=== PATIENT | female | born 1955 | race African-American/Black ===

== ENCOUNTER → 2016-09-10 | Outpatient (CLI) | payer MEDICAID ==
[2014-05-22 11:49] VITALS: BP 124/88
--- NOTE | 2016-09-10 14:03 | RAD ---
HISTORY: Preoperative evaluation Study: Two view chest Comparison: 04/13/2013 Findings: The lungs are clear without consolidation, effusion or pneumothorax. The cardiac and mediastinal co ntours are within normal limits. The soft tissues are unremarkable. IMPRESSION: 1. No acute cardiopulmonary abnormality. Reported By:
[2016-09-10 14:45] LABS: BILIRUBIN,URINE NEGATIVE (NEGATIVE); BLOOD/HEMOGLOBIN,URINE NEGATIVE (NEGATIVE); GLUCOSE, URINE NEGATIVE (NEGATIVE); KETONES,URINE NEGATIVE (NEGATIVE); LEUKOCYTE ESTERASE ,URINE NEGATIVE (NEGATIVE); NITRITES,URINE NEGATIVE (NEGATIVE); PROTEIN,URINE NEGATIVE (NEGATIVE); UROBILINOGEN,URINE NORMAL (NORMAL)
[2016-09-10 14:54] LABS: APPEARANCE,URINE CLEAR (CLEAR); BACTERIA,URINE NEGATIVE /HPF (NEGATIVE); COLOR,URINE PINK (YELLOW); RBC,URINE NONE SEEN /HPF (NEGATIVE); SQUAMOUS EPITHELIAL CELL,UR RARE /HPF (NEGATIVE)
== END ==
LOC: LAB 12:55
PROVIDERS: ATTEND Specialist
DX: Z01.818 Encounter for other preprocedural examination (principal); Z01.810 Encounter for preprocedural cardiovascular examination; Z01.811 Encounter for preprocedural respiratory examination; Z11.8 Encounter for screening for other infectious and parasitic diseases; M17.32 Unilateral post-traumatic osteoarthritis, left knee
CPT/HCPCS: 36415; 71020; 81001; 85652; 86140; 86850; 86900; 86901; 87641; 93005; 93010

== ENCOUNTER 2016-09-14 07:28 | Inpatient (IN) | payer MEDICAID ==
[2016-09-14] MEDS ORDERED: NS 50 ML IV + SPIKE MINIBAG* 50 ML IV ONE (07:34)
[2016-09-14] MEDS ORDERED: D5 LR 1000 ML 1,000 ML IV ONE (07:34)
[2016-09-14] MEDS ORDERED: ANCEF VIAL 1 GM ONE ×2 (07:35→07:53)
[2016-09-14 08:09] VITALS: BMI 39.8
[2016-09-14] MEDS ORDERED: FENTANYL INJ 250 mcg ONE (08:14)
[2016-09-14] MEDS ORDERED: DILAUDID INJ ONE ×2 (08:14→10:51)
[2016-09-14] MEDS ORDERED: MARCAINE 0.25% WITH EPI IJ ONE (08:48)
[2016-09-14] MEDS ORDERED: PATIENT'S HOME MEDICATION RESPIRATORY (Alprazolam [Xanax 1 Mg] 1 MG) PO PRN (08:57)
[2016-09-14] MEDS ORDERED: [UNRECOGNIZED DRUG - OTHER] PO SCH (09:00)
[2016-09-14] MEDS ORDERED: DEPAKOTE D.R. TAB PO SCH (09:00)
[2016-09-14] MEDS ORDERED: NS IRRIGATION 1000 ML 1,000 ML with BACITRACIN VIAL 50,000 UNT IR ONE ×2 (09:10)
[2016-09-14] MEDS ORDERED: NS IRRIGATION 3000 ML 3,000 ML with BACITRACIN VIAL 50,000 UNT IR ONE ×4 (09:10)
[2016-09-14] MEDS ORDERED: XANAX PO PRN (09:12)
[2016-09-14] MEDS ORDERED: PHENERGAN INJ 25 MG IVP PRN (10:38)
[2016-09-14] MEDS ORDERED: BENADRYL INJ 50 MG VIAL IVP PRN (10:38)
[2016-09-14] MEDS ORDERED: ZOFRAN INJ 4 MG VIAL IVP PRN (10:38)
[2016-09-14] MEDS ORDERED: REGLAN INJ 10 MG VIAL IVP PRN (10:38)
[2016-09-14] MEDS: DILAUDID INJ IVP PRN ×2 (10:40→10:55)
[2016-09-14] MEDS ORDERED: DILAUDID INJ IVP ONE (11:20)
[2016-09-14] MEDS ORDERED: NAROPIN 0.75% ONE (11:21)
[2016-09-14] MEDS: D5 NS 1000 ML 1,000 ML IV SCH (11:55)
[2016-09-14] MEDS: MORPHINE SULFATE PCA 30 MG IV PRN ×2 (12:07→18:40)
[2016-09-14] MEDS ORDERED: DEPAKOTE D.R. TAB PO ONE (12:26)
[2016-09-14] MEDS: ADVAIR DISKUS 250/50 IN SCH ×2 (12:30→20:31)
[2016-09-14] MEDS ORDERED: NS 500 ML IV 500 ML IV ONE (12:44)
[2016-09-14] MEDS ORDERED: DIPRIVAN VIAL ONE (13:14)
[2016-09-14] MEDS ORDERED: XYLOCAINE 2 % (PLAIN) ONE (13:14)
[2016-09-14] MEDS ORDERED: REGLAN INJ 10 MG VIAL ONE (13:14)
[2016-09-14] MEDS ORDERED: ZOFRAN INJ 4 MG VIAL ONE (13:14)
[2016-09-14] MEDS ORDERED: QUELICIN (OR ANECTINE) ONE (13:14)
[2016-09-14] MEDS ORDERED: ROBINUL ONE (13:14)
[2016-09-14] MEDS ORDERED: SUPRANE IN ONE (13:14)
[2016-09-14] MEDS ORDERED: NORMODYNE INJ 100 MG VIAL ONE (13:14)
[2016-09-14] MEDS ORDERED: NORCURON INJ 10 MG VIAL ONE (13:14)
[2016-09-14] MEDS ORDERED: VERSED ONE (13:14)
[2016-09-14] MEDS ORDERED: NEOSTIGMINE INJ ONE (13:14)
[2016-09-14] MEDS: PROTONIX TAB 40 MG PO SCH (13:43)
[2016-09-14] MEDS: ANCEF VIAL 1 GM 2 GM in NS 100 ML IV 100 ML IV SCH ×2 (13:44→21:29)
[2016-09-14] MEDS: REGLAN TAB 10 MG PO SCH ×3 (13:44→21:30)
[2016-09-14] MEDS: SINGULAIR TAB 10 MG PO SCH (13:44)
[2016-09-14] MEDS: ZANTAC PO SCH ×2 (13:44→21:30)
[2016-09-14] MEDS: UNIPHYL TAB 400 MG PO SCH (13:44)
[2016-09-14] MEDS: PERCOCET TAB 5/325 MG PO PRN ×3 (13:45→23:11)
[2016-09-14] MEDS: [UNRECOGNIZED DRUG - OTHER] PO SCH (16:09)
[2016-09-14] MEDS: LYRICA 25 MG PO SCH ×2 (16:10→22:35)
[2016-09-14] MEDS: [UNRECOGNIZED DRUG - OTHER] PO SCH (22:06)
[2016-09-15] MEDS: MORPHINE SULFATE PCA 30 MG IV PRN ×2 (03:30→13:24)
[2016-09-15] MEDS: REGLAN TAB 10 MG PO SCH ×4 (05:42→21:22)
[2016-09-15] MEDS: LYRICA 25 MG PO SCH ×3 (05:42→21:23)
[2016-09-15] MEDS: ANCEF VIAL 1 GM 2 GM in NS 100 ML IV 100 ML IV SCH ×3 (05:42→21:22)
[2016-09-15] MEDS: D5 NS 1000 ML 1,000 ML IV SCH ×2 (05:45→06:52)
[2016-09-15] MEDS ORDERED: LEXAPRO ONE (08:42)
[2016-09-15] MEDS: PERCOCET TAB 5/325 MG PO PRN ×3 (09:03→21:22)
[2016-09-15] MEDS: PROTONIX TAB 40 MG PO SCH (09:03)
[2016-09-15] MEDS: UNIPHYL TAB 400 MG PO SCH (09:04)
[2016-09-15] MEDS: LOVENOX INJ 30 MG SYR SC SCH ×2 (09:04→21:21)
[2016-09-15] MEDS: SINGULAIR TAB 10 MG PO SCH (09:04)
[2016-09-15] MEDS: LEXAPRO PO SCH (09:04)
[2016-09-15] MEDS: ZANTAC PO SCH ×2 (09:04→21:22)
[2016-09-15] MEDS: [UNRECOGNIZED DRUG - OTHER] PO SCH (09:05)
[2016-09-15] MEDS: ADVAIR DISKUS 250/50 IN SCH ×2 (09:11→21:01)
[2016-09-15] MEDS: PROVENTIL NEB TX 0.083% 2.5MG/ 3ML IN PRN ×4 (09:11→21:02)
[2016-09-15 09:22] LABS: BASOPHILS # (AUTO) 0.1 X10^3/uL (0.0-0.1); BASOPHILS % (AUTO) 0.6 % (0.2-1.0); EOSINOPHILS % (AUTO) 0.1 % (0.9-2.9); HEMATOCRIT 39.2 % (36.0-47.0); HEMOGLOBIN 13.1 g/dL (12.0-16.0); LYMPHOCYTES # (AUTO) 2.5 X10^3/uL (1.3-2.9); LYMPHOCYTES % (AUTO) 21.6 % (21.0-51.0); MEAN CORPUSCULAR HEMOGLOBIN 29.4 pg (27.0-34.0); MEAN CORPUSCULAR HGB CONC 33.5 g/dL (33.0-35.0); MEAN CORPUSCULAR VOLUME 87.7 fL (80.0-100.0); MEAN PLATELET VOLUME 8.5 fL (7.4-11.0); MONOCYTES # (AUTO) 1.6 x10^3/uL (0.3-0.8); MONOCYTES % (AUTO) 13.7 % (0.0-13.0); NEUTROPHILS # (AUTO) 7.3 x10^3/uL (2.2-4.8); PLATELET COUNT 176 X10^3/uL (150.0-450.0); RED BLOOD COUNT 4.48 X10^6/uL (3.5-5.4); RED CELL DISTRIBUTION WIDTH 13.1 % (11.6-16.5); WHITE BLOOD COUNT 11.4 X10^3/uL (3.6-10.0)
[2016-09-15 09:26] LABS: BLOOD UREA NITROGEN 6 mg/dL (7-18); CALCIUM 8.2 mg/dL (8.5-10.1); CARBON DIOXIDE 24.6 mmol/L (21-32); CHLORIDE 102 mmol/L (98-107); COR NA(FOR HYPERGLY) 140 mmol/L (136-145); CREATININE 0.85 mg/dL (0.55-1.02); GLUCOSE 132 mg/dL (65-99); SODIUM 139 mmol/L (136-145); eGFR BLACK RACES > 60 (>60); eGFR NON BLACK RACES > 60 (>60)
[2016-09-15] MEDS: CARDIZEM CD 180 MG PO SCH (11:03)
[2016-09-15] MEDS: [UNRECOGNIZED DRUG - OTHER] PO SCH (21:21)
[2016-09-16] MEDS: D5 NS 1000 ML 1,000 ML IV SCH ×2 (01:56→04:17)
[2016-09-16] MEDS: MORPHINE SULFATE PCA 30 MG IV PRN (01:57)
[2016-09-16] MEDS: ANCEF VIAL 1 GM 2 GM in NS 100 ML IV 100 ML IV SCH ×2 (05:28→14:32)
[2016-09-16] MEDS: LYRICA 25 MG PO SCH ×2 (05:28→14:33)
[2016-09-16] MEDS: REGLAN TAB 10 MG PO SCH ×2 (05:30→14:32)
[2016-09-16 05:34] LABS: BASOPHILS # (AUTO) 0.1 X10^3/uL (0.0-0.1); BASOPHILS % (AUTO) 0.4 % (0.2-1.0); HEMATOCRIT 33.2 % (36.0-47.0); HEMOGLOBIN 11.3 g/dL (12.0-16.0); LYMPHOCYTES # (AUTO) 2.1 X10^3/uL (1.3-2.9); LYMPHOCYTES % (AUTO) 16.9 % (21.0-51.0); MEAN CORPUSCULAR HEMOGLOBIN 29.8 pg (27.0-34.0); MEAN CORPUSCULAR HGB CONC 34.1 g/dL (33.0-35.0); MEAN CORPUSCULAR VOLUME 87.4 fL (80.0-100.0); MEAN PLATELET VOLUME 8.8 fL (7.4-11.0); MONOCYTES # (AUTO) 1.7 x10^3/uL (0.3-0.8); MONOCYTES % (AUTO) 13.9 % (0.0-13.0); NEUTROPHILS # (AUTO) 8.4 x10^3/uL (2.2-4.8); NEUTROPHILS % (AUTO) 68.8 % (42.0-75.0); PLATELET COUNT 166 X10^3/uL (150.0-450.0); RED BLOOD COUNT 3.79 X10^6/uL (3.5-5.4); RED CELL DISTRIBUTION WIDTH 12.4 % (11.6-16.5); WHITE BLOOD COUNT 12.3 X10^3/uL (3.6-10.0)
[2016-09-16 05:44] LABS: BLOOD UREA NITROGEN 5 mg/dL (7-18); CARBON DIOXIDE 26.1 mmol/L (21-32); CHLORIDE 102 mmol/L (98-107); COR NA(FOR HYPERGLY) 139 mmol/L (136-145); CREATININE 0.76 mg/dL (0.55-1.02); GLUCOSE 150 mg/dL (65-99); SODIUM 138 mmol/L (136-145); eGFR BLACK RACES > 60 (>60); eGFR NON BLACK RACES > 60 (>60)
[2016-09-16] MEDS ORDERED: LEXAPRO ONE (08:33)
[2016-09-16] MEDS: LOVENOX INJ 30 MG SYR SC SCH (08:42)
[2016-09-16] MEDS: UNIPHYL TAB 400 MG PO SCH (08:45)
[2016-09-16] MEDS: ZANTAC PO SCH (08:45)
[2016-09-16] MEDS: SINGULAIR TAB 10 MG PO SCH (08:46)
[2016-09-16] MEDS: PROTONIX TAB 40 MG PO SCH (08:46)
[2016-09-16] MEDS: LEXAPRO PO SCH (08:46)
[2016-09-16] MEDS: PERCOCET TAB 5/325 MG PO PRN ×2 (08:47→15:29)
[2016-09-16] MEDS: CARDIZEM CD 180 MG PO SCH (08:48)
[2016-09-16] MEDS: PROVENTIL NEB TX 0.083% 2.5MG/ 3ML IN PRN (08:52)
[2016-09-16] MEDS: ADVAIR DISKUS 250/50 IN SCH (08:52)
[2016-09-16] MEDS ORDERED: CARDIZEM CD 180 MG PO SCH (09:01)
[2016-09-16] MEDS ORDERED: LR 1000 ML IV 1,000 ML IV SCH (10:00)
[2016-09-16] MEDS ORDERED: K-DUR TAB 20 MEQ PO SCH (10:00)
[2016-09-16] MEDS ORDERED: CARDIZEM CD 240 MG PO SCH (10:00)
[2016-09-16] MEDS: [UNRECOGNIZED DRUG - OTHER] PO SCH (10:23)
[2016-09-16 16:54] VITALS: BP 144/65
== END 2016-09-16 16:20 | disposition home or self-care (01) | DRG 470 ==
LOC: MED/SURG 07:28
PROVIDERS: ADMIT Specialist; ATTEND Obstetrics & Gynecology Obstetrics
PROC: 0SRD0J9 Replacement of Left Knee Joint with Synthetic Substitute, Cemented, Open Approach (ICD-10-PCS; principal; 2016-09-14 08:30)
DX: M17.12 Unilateral primary osteoarthritis, left knee (principal); I10 Essential (primary) hypertension; E87.6 Hypokalemia; R26.89 Other abnormalities of gait and mobility
CPT/HCPCS: 36415; 80048; 85025; 94640; 94762; 97535; A4216; A4222; S0020; J0330; J0690; J1170; J1650; J2001; J2250; J2271; J2405; J2710; J2765; J3010; J3490; J7120; J7613